=== PATIENT | female | born 1985 | race Asian ===

== ENCOUNTER 2023-09-15 06:19 | Day surgery (SDC) | payer OTHER ==
[2023-09-15] MEDS ORDERED: LIDOCAINE 4% 50 ML SOLUTION TP ONE (06:20)
[2023-09-15] MEDS ORDERED: BENZOCAINE 20% 50 MCG/SPRAY 57 GM TP ONE (06:20)
[2023-09-15] MEDS ORDERED: LIDOCAINE 2% 11 ML JELLY TP ONE (06:20)
[2023-09-15] MEDS ORDERED: ALBUTEROL SULFATE 2.5 MG/0.5 ML NEB SOLUTION NEB ONE (06:20)
[2023-09-15] MEDS ORDERED: SODIUM CHLORIDE 0.9% 1,000 ML ONE (06:46)
[2023-09-15] MEDS ORDERED: MIDAZOLAM HCL 2 MG/2 ML VIAL ONE (07:43)
[2023-09-15] MEDS ORDERED: FentaNYL CITRATE PF 100 MCG/2 ML VIAL ONE (07:43)
[2023-09-15] MEDS: SODIUM CHLORIDE 0.9% 1,000 ML IV ONE (08:22)
[2023-09-15 09:30] VITALS: PULSE 79; RESP 13; O2SAT 100
[2023-09-15] MEDS ORDERED: MethylPREDNISolone SOD SUCC 125 MG/2 ML VIAL ONE (10:02)
[2023-09-15] MEDS: MethylPREDNISolone SOD SUCC 125 MG/2 ML VIAL IVP ONE (10:15)
[2023-09-15] MEDS ORDERED: OXYGEN THERAPY IH SCH (20:00)
== END 2023-09-15 11:45 | disposition home or self-care (01) ==
LOC: SURGERY 06:19
PROVIDERS: ATTEND Internal Medicine Critical Care Medicine
DX: R05.3 Chronic cough (principal); J38.4 Edema of larynx; B37.0 Candidal stomatitis; R91.8 Other nonspecific abnormal finding of lung field; R06.2 Wheezing; R04.2 Hemoptysis; J84.10 Pulmonary fibrosis, unspecified; J98.8 Other specified respiratory disorders; J98.09 Other diseases of bronchus, not elsewhere classified; Z85.21 Personal history of malignant neoplasm of larynx
CPT/HCPCS: 31623; 84703; 87206; 87101; 87220; 87070; 88108; 31624; 94640; 71045; 87015; J3010; J2250; J2919; Q9967; J7030; J7613; Z7610